=== PATIENT | male | born 1945 | race Caucasian/White ===

== ENCOUNTER 2021-01-03 20:01 | Inpatient (IN) ==
[2021-01-03] MEDS ORDERED: FUROSEMIDE 40 MG/4 ML VIAL IV STA (20:38)
[2021-01-03] MEDS ORDERED: ONDANSETRON 4 MG/2 ML VIAL IV STA (20:38)
[2021-01-03] MEDS ORDERED: ALBUTEROL/IPRATROPIUM 3 ML NEB RESP TX STA (20:38)
[2021-01-03] MEDS ORDERED: methylPREDNISolone SOD SUC 125 MG/2 ML VIAL IV STA (20:38)
[2021-01-03 20:44] LABS: Basophils % 0.3 % (0.0-0.8); Eosinophils # 0.1 10*3/uL (0.0-0.87); Eosinophils % 0.5 % (0.00-10.9); Hematocrit 32.7 VOL% (42.0-52.0); Hemoglobin 10.1 GM/DL (14.0-18.0); Immature Granulocytes % 1.1 %; Immature Granulocytes Absolute 0.11 #; Lymphocytes # 0.8 10*3/uL (1.4-4.0); Lymphocytes % 8.1 % (21.2-54.2); Mean Corpuscular HGB Conc 30.9 GM/DL (32-36); Mean Corpuscular Volume 92.4 FL (87-102); Mean Platelet Volume 10.4 FL (9.6-12.0); Monocytes % 8.8 % (1.7-12.7); Neutrophils % 81.2 % (38.7-73.9); Platelet Count 267 T/CUMM (130-400); Red Blood Count 3.54 MC/CUMM (3.8-5.5); Red Cell Distribution Width 15.3 % (9.3-17.3); White Blood Count 9.8 T/CUMM (4-12)
[2021-01-03 20:51] LABS: INR 1.1; PT Patient Result 11.4 SECS (9.8-11.9)
[2021-01-03 21:05] LABS: Alanine Aminotransferase 45 U/L (16-61); Albumin 2.9 G/DL (3.4-5.0); Alkaline Phosphatase 169 U/L (45-117); Aspartate Amino Transferase 50 U/L (0-37); Bilirubin,Total < 0.39 MG/DL (0.2-1.0); Blood Urea Nitrogen 19 MG/DL (7-18); Calcium 9.1 MG/DL (8.5-10.1); Carbon Dioxide 27 MMOL/L (21-32); Estimated Glom Filtration Rate 50 ML/MIN; Glucose 467 MG/DL (74-106); Osmolality,Calculated 294.8 MOS/KG (273-304); Potassium 5.4 MMOL/L (3.5-5.1); Sodium 137 MMOL/L (136-145); Total Protein 6.7 G/DL (5.0-7.5)
[2021-01-03] MEDS ORDERED: ENOXAPARIN 100 MG/ML SYRINGE SUBCUT STA (21:29)
[2021-01-03] MEDS ORDERED: ONDANSETRON 4 MG/2 ML VIAL IV PRN (21:57)
[2021-01-03] MEDS ORDERED: GLUCAGON 1 MG VIAL IM PRN (21:57)
[2021-01-03] MEDS ORDERED: DEXTROSE 50% 25 GM/50 ML VIAL IV PRN (21:57)
[2021-01-03 22:00] LABS: Bilirubin,Urine Negative (Negative); Blood, Urine Negative (Negative); Glucose,Urine (UA) >=500 mg/dL (Negative); Ketones,Urine Negative (Negative); Mucus,Urine Occasional /LPF (Occasional); Nitrite,Urine Negative (Negative); Protein,Urine Negative; RBC,Urine 3 /HPF (0-4); Squamous Epithelial Cell,Urine Occasional /HPF (0-10); Urine Appearance CLEAR (Clear); Urine Color Straw (Yellow); Urine Specific Gravity 1.014 (1.001-1.035); Urine Urobilinogen < 2.0 EU/DL (0.2-1.0); WBC,Urine 1 /HPF (0-6)
[2021-01-03] MEDS: INSULIN REGULAR 100 UNIT/ML SUBCUT SCH (22:30)
[2021-01-03] MEDS: ZALEPLON 5 MG CAPSULE PO PRN (22:34)
[2021-01-04] MEDS: ALBUTEROL 2.5 MG/3 ML NEB RESP TX SCH ×4 (01:13→19:15)
[2021-01-04 04:10] LABS: Calcium 8.8 MG/DL (8.5-10.1); Osmolality,Calculated 275.5 MOS/KG (273-304); Potassium 4.6 MMOL/L (3.5-5.1)
[2021-01-04 04:27] LABS: Risk Ratio 3.08; VLDL CHOLESTEROL 10.6 MG/DL
[2021-01-04] MEDS: NAPROXEN 500 MG TABLET PO SCH ×2 (08:45→16:02)
[2021-01-04] MEDS: INSULIN REGULAR 100 UNIT/ML SUBCUT SCH ×4 (08:45→21:02)
[2021-01-04] MEDS: lisinopriL 20 MG TABLET PO SCH (08:45)
[2021-01-04] MEDS: CLOPIDOGREL 75 MG TABLET PO SCH (08:45)
[2021-01-04] MEDS: ASPIRIN EC 81 MG TABLET PO SCH (08:45)
[2021-01-04] MEDS: amLODIPine 5 MG TABLET PO SCH (08:45)
[2021-01-04] MEDS: ENOXAPARIN 80 MG/0.8 ML SYRINGE SUBCUT SCH ×2 (08:46→20:25)
[2021-01-04] MEDS ORDERED: Fluticasone-Umeclidin-Vilanter [Trelegy Ellipta] 200-62.5-25 mcg INH SCH (09:00)
[2021-01-04] MEDS ORDERED: NEBIVOLOL 10 MG TABLET PO SCH (09:00)
[2021-01-04] MEDS: METOPROLOL TARTRATE 25 MG TABLET PO SCH ×2 (13:48→21:02)
[2021-01-04] MEDS: GLIMEPIRIDE 2 MG TABLET PO SCH (13:50)
[2021-01-04] MEDS: SIMVASTATIN 20 MG TABLET PO SCH (20:25)
[2021-01-04] MEDS: methylPREDNISolone SOD SUC 40 MG/1 ML VIAL IV SCH (21:02)
[2021-01-04] MEDS: ZALEPLON 5 MG CAPSULE PO PRN (23:48)
[2021-01-05] MEDS: ALBUTEROL 2.5 MG/3 ML NEB RESP TX SCH ×4 (01:03→19:40)
[2021-01-05] MEDS: methylPREDNISolone SOD SUC 40 MG/1 ML VIAL IV SCH ×3 (03:20→21:17)
[2021-01-05] MEDS ORDERED: ALBUTEROL/IPRATROPIUM 3 ML NEB RESP TX PRN (08:09)
[2021-01-05] MEDS: ASPIRIN EC 81 MG TABLET PO SCH (09:09)
[2021-01-05] MEDS: amLODIPine 5 MG TABLET PO SCH (09:09)
[2021-01-05] MEDS: GLIMEPIRIDE 2 MG TABLET PO SCH (09:09)
[2021-01-05] MEDS: CLOPIDOGREL 75 MG TABLET PO SCH (09:09)
[2021-01-05] MEDS: METOPROLOL TARTRATE 25 MG TABLET PO SCH ×2 (09:09→21:21)
[2021-01-05] MEDS: NAPROXEN 500 MG TABLET PO SCH ×2 (09:09→16:11)
[2021-01-05] MEDS: ENOXAPARIN 40 MG/0.4 ML SYRINGE SUBCUT SCH (09:10)
[2021-01-05] MEDS: INSULIN REGULAR 100 UNIT/ML SUBCUT SCH ×4 (09:10→21:16)
[2021-01-05] MEDS: lisinopriL 20 MG TABLET PO SCH ×2 (09:15→21:21)
[2021-01-05] MEDS: SIMVASTATIN 20 MG TABLET PO SCH (21:23)
[2021-01-05] MEDS: ZALEPLON 5 MG CAPSULE PO PRN (22:06)
[2021-01-06] MEDS: ALBUTEROL 2.5 MG/3 ML NEB RESP TX SCH ×4 (02:00→19:21)
[2021-01-06 05:43] LABS: Calcium 8.8 MG/DL (8.5-10.1); Potassium 4.5 MMOL/L (3.5-5.1)
[2021-01-06] MEDS: methylPREDNISolone SOD SUC 40 MG/1 ML VIAL IV SCH (05:49)
[2021-01-06] MEDS: GLIMEPIRIDE 2 MG TABLET PO SCH (09:39)
[2021-01-06] MEDS: METOPROLOL TARTRATE 25 MG TABLET PO SCH ×2 (09:39→21:25)
[2021-01-06] MEDS: NAPROXEN 500 MG TABLET PO SCH ×2 (09:39→16:46)
[2021-01-06] MEDS: amLODIPine 5 MG TABLET PO SCH (09:40)
[2021-01-06] MEDS: ENOXAPARIN 40 MG/0.4 ML SYRINGE SUBCUT SCH (09:40)
[2021-01-06] MEDS: ASPIRIN EC 81 MG TABLET PO SCH (09:40)
[2021-01-06] MEDS: INSULIN REGULAR 100 UNIT/ML SUBCUT SCH ×5 (09:40→21:19)
[2021-01-06] MEDS: CLOPIDOGREL 75 MG TABLET PO SCH (09:40)
[2021-01-06] MEDS: SIMVASTATIN 20 MG TABLET PO SCH (21:19)
[2021-01-06] MEDS: ZALEPLON 5 MG CAPSULE PO PRN (21:19)
[2021-01-06] MEDS: lisinopriL 20 MG TABLET PO SCH (21:25)
[2021-01-07] MEDS: ALBUTEROL 2.5 MG/3 ML NEB RESP TX SCH ×4 (00:06→19:06)
[2021-01-07 05:40] LABS: Calcium 8.7 MG/DL (8.5-10.1); Osmolality,Calculated 287.7 MOS/KG (273-304); Potassium 3.7 MMOL/L (3.5-5.1)
[2021-01-07] MEDS: INSULIN REGULAR 100 UNIT/ML SUBCUT SCH ×4 (09:33→21:39)
[2021-01-07] MEDS: ENOXAPARIN 40 MG/0.4 ML SYRINGE SUBCUT SCH (09:33)
[2021-01-07] MEDS: CLOPIDOGREL 75 MG TABLET PO SCH (09:35)
[2021-01-07] MEDS: NAPROXEN 500 MG TABLET PO SCH ×2 (09:35→17:34)
[2021-01-07] MEDS: ASPIRIN EC 81 MG TABLET PO SCH (09:35)
[2021-01-07] MEDS: amLODIPine 5 MG TABLET PO SCH (09:35)
[2021-01-07] MEDS: GLIMEPIRIDE 2 MG TABLET PO SCH (09:35)
[2021-01-07] MEDS: METOPROLOL TARTRATE 25 MG TABLET PO SCH ×2 (09:35→21:37)
[2021-01-07] MEDS: predniSONE 20 MG TABLET PO SCH (09:35)
[2021-01-07] MEDS: BUDESONIDE 0.5 MG/2 ML NEB RESP TX SCH (19:06)
[2021-01-07] MEDS: ZALEPLON 5 MG CAPSULE PO PRN (21:37)
[2021-01-07] MEDS: lisinopriL 20 MG TABLET PO SCH (21:37)
[2021-01-07] MEDS: SIMVASTATIN 20 MG TABLET PO SCH (21:38)
[2021-01-08] MEDS: ALBUTEROL 2.5 MG/3 ML NEB RESP TX SCH ×4 (00:51→18:18)
[2021-01-08] MEDS: BUDESONIDE 0.5 MG/2 ML NEB RESP TX SCH ×2 (07:09→18:18)
[2021-01-08] MEDS: INSULIN REGULAR 100 UNIT/ML SUBCUT SCH ×4 (07:33→21:11)
[2021-01-08] MEDS: predniSONE 20 MG TABLET PO SCH (08:52)
[2021-01-08] MEDS: GLIMEPIRIDE 2 MG TABLET PO SCH (08:52)
[2021-01-08] MEDS: amLODIPine 5 MG TABLET PO SCH (08:52)
[2021-01-08] MEDS: CLOPIDOGREL 75 MG TABLET PO SCH (08:52)
[2021-01-08] MEDS: ASPIRIN EC 81 MG TABLET PO SCH (08:53)
[2021-01-08] MEDS: ENOXAPARIN 40 MG/0.4 ML SYRINGE SUBCUT SCH (08:53)
[2021-01-08] MEDS: METOPROLOL TARTRATE 25 MG TABLET PO SCH ×2 (08:53→21:12)
[2021-01-08] MEDS: NAPROXEN 500 MG TABLET PO SCH ×2 (08:53→16:35)
[2021-01-08] MEDS: lisinopriL 20 MG TABLET PO SCH (21:12)
[2021-01-08] MEDS: ZALEPLON 5 MG CAPSULE PO PRN (21:12)
[2021-01-08] MEDS: SIMVASTATIN 20 MG TABLET PO SCH (21:13)
[2021-01-09] MEDS: ALBUTEROL 2.5 MG/3 ML NEB RESP TX SCH ×3 (00:40→14:16)
[2021-01-09] MEDS: BUDESONIDE 0.5 MG/2 ML NEB RESP TX SCH (07:47)
[2021-01-09] MEDS: INSULIN REGULAR 100 UNIT/ML SUBCUT SCH ×2 (07:49→12:39)
[2021-01-09] MEDS: METOPROLOL TARTRATE 25 MG TABLET PO SCH (08:37)
[2021-01-09] MEDS: NAPROXEN 500 MG TABLET PO SCH (08:37)
[2021-01-09] MEDS: ENOXAPARIN 40 MG/0.4 ML SYRINGE SUBCUT SCH (08:37)
[2021-01-09] MEDS: CLOPIDOGREL 75 MG TABLET PO SCH (08:38)
[2021-01-09] MEDS: GLIMEPIRIDE 2 MG TABLET PO SCH (08:38)
[2021-01-09] MEDS: ASPIRIN EC 81 MG TABLET PO SCH (08:38)
[2021-01-09] MEDS: amLODIPine 5 MG TABLET PO SCH (08:38)
[2021-01-09] MEDS ORDERED: predniSONE 20 MG TABLET PO SCH (09:00)
[2021-01-09 12:30] VITALS: BP 131/67
== END 2021-01-09 16:40 | disposition swing bed (61) | DRG 190 ==
LOC: EDUNIT# → EDBD → N.ED 20:01 → N.EDINP 21:57 → N.TELES 01-04 13:49
PROVIDERS: ADMIT Internal Medicine; ATTEND Internal Medicine